=== PATIENT | male | born 1955 | race African-American/Black ===

== ENCOUNTER 2020-09-25 10:41 | Emergency (ER) | payer MEDICARE, MEDICAID ==
[~2020-09-25] VITALS: Ht 154.9 cm; Wt 145.1 kg
[2020-09-25 10:41] VITALS: BP 0/0
[~2020-09-25 10:41] MED LIST: LISI-646; METO25TA93
[2020-09-25] MEDS ORDERED: SODIUM BICARBONATE 8.4% INJ 50ML SYRINGE IV ONE (10:42)
[2020-09-25] MEDS ORDERED: EPINEPHrine HCL 1 MG/10 ML SYRG IV ONE (10:42)
== END 2020-09-25 17:19 | disposition expired ==
LOC: ER 10:41 → EDBD 10:41 → ER 17:19
DX: I46.9 Cardiac arrest, cause unspecified (principal); E11.9 Type 2 diabetes mellitus without complications; E78.5 Hyperlipidemia, unspecified; I10 Essential (primary) hypertension; Z88.2 Allergy status to sulfonamides; Z79.899 Other long term (current) drug therapy
CPT/HCPCS: 31500; 92950; 99285; J0171; 99291